=== PATIENT | female | born 1985 | race Caucasian/White ===

== ENCOUNTER 2019-12-10 15:00 | Inpatient (IN) | payer OTHER ==
[2019-12-10] VITALS (9 sets, daily range): BP systolic 109–130; BP diastolic 40–75
[~2019-12-10] VITALS: Ht 165.1 cm; Wt 68.0 kg
--- NOTE | 2019-12-10 15:00 | NUR ---
Ethel CAGE RA WITNESSED SEIZURE WHILE WALKING ON STREET, RT, MD AND RN AT BEDSIDE, TO ER BED 8, HOOKED TO REGISTERED NURSE RENAL, PATIENT WENT ON SEIZURES UPON ARRIVAL IN ED. PLACED PATIENT ON NON-REBREATHER MASK AT 15LPM, ATIVAN 2MG IM GIVEN. SEIZURE PRECAUTION APPLIED. Addendum: 12/10/19 at 1658 by SHWETA Ethel CAGE RA WITNESSED SEIZURE WHILE WALKING ON STREET, RT, AND RN AT BEDSIDE, TO ER BED 8, HOOKED TO REGISTERED NURSE RENAL, PATIENT WENT ON SEIZURES UPON ARRIVAL IN ED. PLACED PATIENT ON NON-REBREATHER MASK AT 15LPM, SEIZURE PRECAUTION APPLIED.
[2019-12-10] MEDS ORDERED: LORAZEPAM INJ 2 MG/ML VIAL ONE ×3 (15:10→15:26)
--- NOTE | 2019-12-10 15:10 | NUR ---
RECEIVED VERBAL ORDER FROM DR STACY FOR ATIVAN 2MG IM. CARRIED OUT
--- NOTE | 2019-12-10 15:14 | NUR ---
RECEIVED VERBAL ORDER FROM DR STACY FOR ATIVAN 2MG IV. CARRIED OUT. IVP RH 18G
[2019-12-10] MEDS ORDERED: PROPOFOL 100 ML ONE ×2 (15:28→18:11)
[2019-12-10 15:29] LABS: BASOPHILS # (AUTO) 0.1 /CMM (0.0-0.2); EOSINOPHILS % (AUTO) 0.2 % (0.0-6.0); HEMOGLOBIN 14.2 g/dL (11.5-14.8); MONOCYTES # (AUTO) 1.2 /CMM (0.1-1.30); WHITE BLOOD COUNT (AUTO) 20.1 K/uL (4.3-11.0)
[2019-12-10] MEDS ORDERED: NS 0.9% IV ONE (15:30)
[2019-12-10] MEDS ORDERED: KEPPRA 1000 MG in IV NS 100 ML IV ONE ×5 (15:30→16:30)
[2019-12-10] MEDS ORDERED: IV NS 0.9% 1,000 ML BAG IV ONE (15:30)
[2019-12-10] MEDS ORDERED: LEVETIRACETAM IV ONE (15:30)
--- NOTE | 2019-12-10 15:30 | NUR ---
DR STACY AT BEDSIDE IN PREPARATION FOR INTUBATION, RT AND RN AND TECH AT BEDSIDE
--- NOTE | 2019-12-10 15:32 | NUR ---
VERBAL ORDER RECEIVED FROM DR STACY OF ETOMIDATE 20MG IVP AND SUCCINYLCHOLINE 100MG IVP. CARRIED OUT.
--- NOTE | 2019-12-10 15:36 | NUR ---
ET TUBE IN. SIZE: 8.0 26 AT THE LIP +COLOR CHANGE + BILATERAL CHEST RISE AND FALL + BILATERAL LUNG SOUNDS
[2019-12-10 15:39] LABS: CALCIUM, SERUM 9.1 mg/dL (8.5-10.1); CARBON DIOXIDE 12 mmol/L (21-32); CHLORIDE 97 mmol/L (98-107); GLUCOSE 280 mg/dL (74-106); POTASSIUM 3.5 mmol/L (3.5-5.1); SODIUM SERUM 136 mmol/L (136-145); UREA NITROGEN, BLOOD 13 mg/dL (7-18)
--- NOTE | 2019-12-10 15:42 | NUR ---
RECEIVED VERBAL ORDER FROM DR STACY TO START PATIENT WITH PROPOFOL 1000MG/100ML. SET RATE STARTED AT 30MCG/KG/MIN RH 18G TITRATE TO EFFECT, END TIME: 2141
[2019-12-10 15:43] LABS: BASOPHILS % (AUTO) 0.5 % (0.0-2.0); HEMATOCRIT 45 % (33-45); LYMPHOCYTES # (AUTO) 6.9 /CMM (0.8-4.8); LYMPHOCYTES % (AUTO) 34.4 % (20.0-44.0); MEAN CORPUSCULAR HGB CONC 32 g/dl (31.0-36.0); MEAN CORPUSCULAR VOLUME 92 fL (82-100); NEUTROPHILS # (AUTO) 11.9 /CMM (1.8-8.9); NEUTROPHILS % (AUTO) 58.9 % (43.0-81.0); PLATELET COUNT (AUTO) 368 /CMM (150-450)
--- NOTE | 2019-12-10 15:44 | NUR ---
CARPENTER STREETCAR AT BEDSIDE FOR CONFIRMATION OF ET TUBE
[2019-12-10 15:45] LABS: ALANINE AMINOTRANSFERASE 32 U/L (12-78); ALBUMIN 4.8 g/dL (3.4-5.0); ALKALINE PHOSPHATASE 131 U/L (46-116); ASPARTATE AMINOTRANSFERASE 24 U/L (15-37); BILIRUBIN,DIRECT 0.1 mg/dL (0.0-0.2); BILIRUBIN,TOTAL 0.5 mg/dL (0.2-1.0); TOTAL PROTEIN, SERUM 9.1 g/dL (6.4-8.2)
--- NOTE | 2019-12-10 15:48 | NUR ---
ET TUBE ADJUSTMENT MADE BY RT. 23 AT THE LIP
--- NOTE | 2019-12-10 15:52 | NUR ---
Note emoryannamarie in EDM - 12/10/19 at 1657 by SHWEAT Aiyana CAGE RA/P WITNESSED SEIZURE WHILE WALKING ON STREET, RT, MD AND RN AT BEDSIDE, TO ER BED 8, HOOKED TO GLOBAL CEO, PATIENT WENT ON SEIZURES UPON ARRIVAL IN ED. PLACED PATIENT ON NON-REBREATHER MASK AT 15LPM, ATIVAN 2MG IM GIVEN. SEIZURE PRECAUTION APPLIED.
--- NOTE | 2019-12-10 15:57 | NUR ---
VENT SETTINGS: AC 20 VT 500 O2 50% PEEP 3.0
--- NOTE | 2019-12-10 15:58 | NUR ---
16FR RABAGO CATHETER INSERTED, NOTED WITH YELLOW AND CLEAR OUTPUT
--- NOTE | 2019-12-10 16:02 | NUR ---
250ML INITIAL URINE OUTPUT AFTER INSERTING RABAGO CATHETER
--- NOTE | 2019-12-10 16:20 | NUR ---
OROGASTRIC TUBE INSERTED. PLACEMENT CONFIRMED BY ASPIRATION OF GASTRIC CONTENTS. NOTED WITH CLEAR JESSIE COLORED GASTRIC CONTENT AT 300CC. ASLO +GURGLING SOUNDS UPON INJECTING 30CC OF AIR.
--- NOTE | 2019-12-10 16:24 | NUR ---
BED ASSIGNED BY NURSING COMMUNITY NURSE, ICU [id number].
--- NOTE | 2019-12-10 16:55 | NUR ---
REPORT GIVEN TO JAIME VICK OF ICU
[2019-12-10 17:01] LABS: LYMPHOCYTES % (MANUAL) 34 % (16-48); MONOCYTES % (MANUAL) 4 % (0-11.0); NEUTROPHILS % (MANUAL) 62 (42-76)
--- NOTE | 2019-12-10 17:11 | NUR ---
DR COWART AT BEDSIDE
[2019-12-10] MEDS ORDERED: LEVE500T9 PO (17:12)
[2019-12-10] MEDS ORDERED: FOLI0.4T2 PO (17:12)
--- NOTE | 2019-12-10 17:41 | NUR ---
FIGHT MANAGER AT BEDSIDE
[2019-12-10] MEDS ORDERED: Z GUARD REMEDY 2 OZ OINT TP PRN (18:00)
[2019-12-10] MEDS ORDERED: ONDANSETRON HCL/PF 4 MG/2 ML VIAL IVP PRN (18:00)
[2019-12-10] MEDS ORDERED: IV NS 0.9% 1,000 ML IV SCH (18:00)
[2019-12-10] MEDS ORDERED: LORAZEPAM INJ 2 MG/ML VIAL IM/IV ONE (18:00)
[2019-12-10] MEDS ORDERED: MAGNESIUM HYDROXIDE 30 ML UDC PO PRN (18:00)
[2019-12-10] MEDS ORDERED: LORAZEPAM INJ 2 MG/ML VIAL IV ONE (18:00)
[2019-12-10] MEDS ORDERED: MAG HYDROX/AL HYDROX/SIMETH 30 ML UDC PO PRN (18:00)
[2019-12-10 18:34] LABS: ABG BASE EXCESS -6.1 mmol/L; ABG OXYGEN SATURATION 98.9 % (92.0-98.5); ABG PCO2 25.2 mmHg (35.0-45.0); ABG PH 7.433 (7.350-7.450); ABG PO2 217.2 mmHg (75.0-100.0); COHb 0.3 % (0.5-1.5); MetHb 0.7 % (0.0-1.5); O2Hb 97.9 % (94.0-97.0); SITE, ABG Left Radial; VENT MODE, BG AC 20 500 50% +3
[2019-12-10] MEDS ORDERED: FEE EMEERGENCY 1 MIN EA MC ONE (18:53)
[2019-12-10] MEDS ORDERED: ETOMIDATE 2 MG/ML VIAL IV ONE (18:53)
[2019-12-10] MEDS ORDERED: SUCCINYLCHOLINE CHLORIDE 20 MG/ML VIAL IV ONE (18:53)
--- NOTE | 2019-12-10 19:00 | NUR ---
RECEIVED PATIENT ORALLY INTUBATED ON AC MODE TO THE VENTILATOR, SEDATED ON PROPOFOL DRIP ( PER AM RN,RECEIVED PATIENT ON 30 MCG/KG/MIN OF PROPOFOL ,BUT PATIENT BECAME AGITATED,INCREASED DRIP) RECEIVED PATIENT ON 80 MCG/KG/MIN). PATIENT JUST ARRIVED [facility]O, ER,WHO PRESENTED TO ER AFTER SEIZURE EPISODE WHILE WALKING WITH KIDS,FELL DUE TO THE SEIZURE SUSTAINING MULTIPLE BRUISE( BILATERAL KNEE,RIGHT WRIST) AND ABRASION OF RIGHT LATERAL SIDE OF THE FACE AND RIGHT EAR.FOUND BY PARAMEDICS HAVING SEIZURE ,WAS GIVEN VERSED IN THE FIELD. ON ARRIVAL TO ER ,HAD 2X EPISODE OF SEIZURE AND WAS GIVEN ATIVAN [address] HEAD DONE,WAS GIVEN KEPPRA IV.
[2019-12-10] MEDS ORDERED: PROPOFOL 100 ML IV PRN (20:00)
--- NOTE | 2019-12-10 20:11 | NUR ---
PATIENT RCVD ORALLY INTUBATED WITH 8.0 ETT SECURED @ 23 CM LIPLINE ON [facility] V[facility] WITH ORDERED SETTINGS MINGO WELL. SUCTIONED MODERATE AMOUNT OF PINK TINGED SECRETIONS. VENT ALARMS ON AND AUDIBLE. CUFF PRESSURE CHECKED EDGE BONDER. ETT SECURE AND IN PROPER POSITION. AMBU BAG AT [facility]. NO RESPIRATORY DISTRESS NOTED AT THIS TIME. WILL CONTINUE TO MONITOR THE PT T/O SHIFT.
[2019-12-10] MEDS: PROPOFOL 100 ML IV PRN ×2 (20:15→23:04)
[2019-12-10] MEDS: IV NS 0.9% 1,000 ML IV PRN (20:24)
--- NOTE | 2019-12-10 20:30 | NUR ---
PATIENT SEDATED, ATTEMPTED TO WEAN DOWN PROPOFOL DRIP .
[2019-12-10] MEDS ORDERED: LEVETIRACETAM (500MG) 1,000 MG in IV NS 0.9% 100 ML IV SCH (21:00)
--- NOTE | 2019-12-10 21:00 | NUR ---
PROPOFOL NOW @ 60 MCG/KG/MIN. , PATIENT OCCASIONALLY MOVES AND TRIES TO GET OFF RESTRAINTS .FAMILY AT BEDSIDE ,PATIENT GOT VERY AGITATED TRYING TO GET UP AND GET OFF RESTRAINTS, INCREASED PROPOFOL DRIP ,REMAINS VERY AGITATED, ATIVEN 2 MG . GIVEN( FOR AGITATION,NOT FOR SEIZURE). FAMILY TRIES TO CALM PATIENT DOWN BUT THE MORE PATIENT GOT AGITATED. Addendum: 12/11/19 at 0023 by JOSH COREA RN DUE TO SEVERE AGITATION HEART RATE INCREASED HIGH 150'S .
[2019-12-10] MEDS: LORAZEPAM INJ 2 MG/ML VIAL IV PRN (21:09)
[2019-12-10] MEDS: LEVETIRACETAM (500MG) 1,500 MG in IV NS 0.9% 100 ML IV SCH (21:38)
--- NOTE | 2019-12-10 22:00 | NUR ---
CALMED DOWN AFTER ATIVAN, PROPOFOL DRIP NOW BACK UP TO 90 MCG/KG/MIN..WILL CLOSSLY MONITOR BP.
[2019-12-11] VITALS (30 sets, daily range): BP systolic 95–129; BP diastolic 50–76
--- NOTE | 2019-12-11 | NUR ---
STABLE,NO SEIZURE EPISODE,OCCASIONALLY AWAKENS BUT CALM.
[2019-12-11] MEDS: ACETAMINOPHEN 325 MG TABLET PO PRN ×2 (00:45→23:55)
[2019-12-11] MEDS: PROPOFOL 100 ML IV PRN ×9 (01:33→21:59)
--- NOTE | 2019-12-11 04:00 | NUR ---
AM CARE DONE,REMAINS STABLE,REMAINS MODERATELY SEDATED.WILL WEAN OFF PROPOFOL TOLERATED
[2019-12-11 04:54] LABS: BASOPHILS % (AUTO) 0.1 % (0.0-2.0); HEMATOCRIT 35 % (33-45); HEMOGLOBIN 11.6 g/dL (11.5-14.8); LYMPHOCYTES # (AUTO) 1.4 /CMM (0.8-4.8); LYMPHOCYTES % (AUTO) 9.6 % (20.0-44.0); MEAN CORPUSCULAR HGB CONC 34 g/dl (31.0-36.0); MEAN CORPUSCULAR VOLUME 88 fL (82-100); MONOCYTES # (AUTO) 0.9 /CMM (0.1-1.30); MONOCYTES % (AUTO) 5.8 % (2.0-12.0); NEUTROPHILS # (AUTO) 12.5 /CMM (1.8-8.9); NEUTROPHILS % (AUTO) 84.5 % (43.0-81.0); PLATELET COUNT (AUTO) 215 /CMM (150-450); RED BLOOD CELL COUNT(AUTO) 3.94 MIL/uL (4.0-5.2); WHITE BLOOD COUNT (AUTO) 14.7 K/uL (4.3-11.0)
[2019-12-11 05:11] LABS: CALCIUM, SERUM 8.1 mg/dL (8.5-10.1); CREATININE 0.6 mg/dL (0.6-1.3); MAGNESIUM 2.2 mg/dL (1.8-2.4); PHOSPHORUS 3.4 mg/dL (2.5-4.9); POTASSIUM 3.5 mmol/L (3.5-5.1)
[2019-12-11] MEDS: IV NS 0.9% 1,000 ML IV PRN ×3 (05:28→22:00)
--- NOTE | 2019-12-11 06:41 | NUR ---
NO SEIZURE EPISODES ALL NIGHT. SEDATED BUT AWAKENS , NOW PROPOFOL AT 65 MCG/KG/MIN.
--- NOTE | 2019-12-11 07:00 | NUR ---
REPORT GIVEN TO JAIME VICK
[2019-12-11] MEDS: LEVETIRACETAM (500MG) 1,500 MG in IV NS 0.9% 100 ML IV SCH ×2 (08:15→20:01)
--- NOTE | 2019-12-11 11:22 | NUR ---
RN NOTE 0715: Received patient sedated. With ETT to vent, tolerated settings. No respiratory distress noted. With OGT intact, clamped. With Lerma cath intact, noted with glenn colored with sediments. With PIVs intact. VSS. Noted with slight fever, on cooling measures. No episodes of seizures noted. 1000: Rendered sedation vacation, noted with severe agitation, moves all extremities and not following commands. 1100: No any significant changes noted at this time. S/E by Dr. Smyth, no new order. Awaiting Neuro. No seizures noted.
[2019-12-11] MEDS ORDERED: LORAZEPAM INJ 2 MG/ML VIAL IV PRN (15:00)
--- NOTE | 2019-12-11 19:19 | NUR ---
RN NOTE 1530: S/E by Neuro, noted with agitation on low dose Dip, with order to may use Ativan for breakthrough and try to lower Dip dose as tolerated. 1700: at bedside, discussed re: the POC with Melonie RT for translation. Still noted with moving all extremities on low dose and does not follow commands. With order for CPAP trial in am. 1900: No any sig changes. On Dip 60.
[2019-12-11] MEDS: LORAZEPAM INJ 2 MG/ML VIAL IV PRN (20:01)
[2019-12-12] VITALS (24 sets, daily range): BP systolic 106–132; BP diastolic 34–82
[2019-12-12] MEDS: PROPOFOL 100 ML IV PRN ×3 (01:25→07:44)
[2019-12-12] MEDS: LORAZEPAM INJ 2 MG/ML VIAL IV PRN ×2 (04:43→09:32)
--- NOTE | 2019-12-12 06:30 | NUR ---
RN NOTES IN NO DISTRESS BREATHING EVEN AND UNLABORED.ANSWERS NO WHEN ASKED IF IN PAIN. VENT SETTING WELL TOLERATED. NO SIGNIFICANT CHANGE OF CONDITION. RECEIVED ON PROPOFOL DRIP AT 60MCG. TITRATED TO 50 MCG, WELL TOLERATED. ADMINISTERED 2MG ATIVAN X2 FOR MILD AGITATION, WITH HELP. NOTED WITH ELEVATED TEMPERATURE HIGHEST 101.2, TYLENOL GIVEN LAST TEMP 98.6. KEPT CLEAN AND DRY. WILL ENDORSE TO NEXT SHIFT FOR CONTINUITY OF CARE.
[2019-12-12 07:49] LABS: BASOPHILS % (AUTO) 0.2 % (0.0-2.0); EOSINOPHILS % (AUTO) 0.1 % (0.0-6.0); HEMATOCRIT 35 % (33-45); HEMOGLOBIN 11.4 g/dL (11.5-14.8); LYMPHOCYTES # (AUTO) 0.9 /CMM (0.8-4.8); LYMPHOCYTES % (AUTO) 5.8 % (20.0-44.0); MEAN CORPUSCULAR HGB CONC 33 g/dl (31.0-36.0); MEAN CORPUSCULAR VOLUME 88 fL (82-100); MONOCYTES # (AUTO) 0.9 /CMM (0.1-1.30); MONOCYTES % (AUTO) 5.6 % (2.0-12.0); NEUTROPHILS # (AUTO) 14.5 /CMM (1.8-8.9); NEUTROPHILS % (AUTO) 88.3 % (43.0-81.0); PLATELET COUNT (AUTO) 181 /CMM (150-450); RED BLOOD CELL COUNT(AUTO) 3.92 MIL/uL (4.0-5.2); WHITE BLOOD COUNT (AUTO) 16.4 K/uL (4.3-11.0)
[2019-12-12 07:58] LABS: CALCIUM, SERUM 7.8 mg/dL (8.5-10.1); CREATININE 0.4 mg/dL (0.6-1.3); MAGNESIUM 1.9 mg/dL (1.8-2.4); PHOSPHORUS 2.4 mg/dL (2.5-4.9); POTASSIUM 3.4 mmol/L (3.5-5.1)
--- NOTE | 2019-12-12 08:00 | NUR ---
RN NOTE: PATIENT RECEIVED WITH NO DISTRESS NOTED. INTUBATED, VENT SETTINGS TOLERATING WELL. CONTINUE WITH IV FLUIDS ORDERED. ASPIRATION PRECAUTIONS OBSERVED. SAFETY MEASURES OBSERVED. ON DIPRIVAN DRIP. PT EASILY AROUSAL, BLINKS EYES TO ANSWER YES TO SIMPLE QUESTIONS. CONTINUE TO TURN & REPOSITION Q2H. CONTINUE TO MONITOR.
[2019-12-12] MEDS: LEVETIRACETAM (500MG) 1,500 MG in IV NS 0.9% 100 ML IV SCH ×2 (08:18→21:07)
[2019-12-12] MEDS ORDERED: POTASSIUM CHLORIDE 20 MEQ TAB.PRT.SR PO ONE (08:30)
[2019-12-12] MEDS ORDERED: POTASSIUM CHLORIDE 10 MEQ/50 ML PREMIXED IVPB FOR PERIPHERAL LINE IV ONE (09:00)
[2019-12-12] MEDS: POTASSIUM CL. PREMIX PERIPHER. 50 ML IV SCH ×4 (09:24→12:42)
--- NOTE | 2019-12-12 10:00 | NUR ---
RN NOTE: CLARIFIED WITH DR. BUSTAMANTE REGARDING K-DUR PO ADMINISTRATION. PT IS NPO , OGT IS PLACED. RECEIVED NEW ORDERS TO CHANGE TO PO TO IV ROUTE ORDERED. WILL CONTINUE TO MONITOR.
[2019-12-12 10:37] LABS: ABG OXYGEN SATURATION 96.8 % (92.0-98.5); ABG PCO2 31.1 mmHg (35.0-45.0); ABG PH 7.344 (7.350-7.450); ABG PO2 96.9 mmHg (75.0-100.0); AaDO2 80.5 mmHg; COHb 0.3 % (0.5-1.5); MetHb 0.8 % (0.0-1.5); O2Hb 95.7 % (94.0-97.0); PEEP,BG 5 cm H2O; SITE, ABG Right Radial; VENT MODE, BG CPAP PS=15
[2019-12-12] MEDS ORDERED: Sodium Phosphate 15 MMOL in IV D5W 250 ML IV ONE (12:00)
[2019-12-12] MEDS: ACETAMINOPHEN 325 MG TABLET PO PRN (12:01)
[2019-12-12] MEDS: IV NS 0.9% 1,000 ML IV PRN (12:48)
--- NOTE | 2019-12-12 18:33 | NUR ---
RN NOTE: PATIENT REMAINS ALERT AWAKE ORIENTED X 1. ABLE TO UNDERSTAND. ABLE TO MAKE NEEDS KNOWN BY WRITING. ET TUBE IS RETRACTED RECOMMENDED BY DR. HOPE. CPAP MODE ON, SETTINGS TOLERATING WELL. NO S/S OF DISTRESS NOTED. PLAN TO EXTUBATE TOMORROW PER DR. HOPE. PT IS OFF SEDATION AT THIS TIME. SAFETY/SEIZURE PRECAUTIONS OBSERVED. HOB ELEVATED >30 DEGREES. NOTED SCANT VAGINAL BLEEDING, PER PATIENT HAVING A MENSES. KEPT PT CLEAN & DRY. CONTINUE WITH PLAN OF CARE.
[2019-12-13] VITALS (24 sets, daily range): BP systolic 107–137; BP diastolic 63–87
[2019-12-13] MEDS: IV NS 0.9% 1,000 ML IV PRN ×2 (00:42→13:28)
[2019-12-13 05:09] LABS: BASOPHILS # (AUTO) 0.1 /CMM (0.0-0.2); BASOPHILS % (AUTO) 0.3 % (0.0-2.0); EOSINOPHILS % (AUTO) 0.1 % (0.0-6.0); HEMATOCRIT 36 % (33-45); HEMOGLOBIN 11.6 g/dL (11.5-14.8); LYMPHOCYTES # (AUTO) 0.9 /CMM (0.8-4.8); MEAN CORPUSCULAR HGB CONC 32 g/dl (31.0-36.0); MEAN CORPUSCULAR VOLUME 89 fL (82-100); MONOCYTES # (AUTO) 0.9 /CMM (0.1-1.30); MONOCYTES % (AUTO) 5.2 % (2.0-12.0); NEUTROPHILS # (AUTO) 15.6 /CMM (1.8-8.9); NEUTROPHILS % (AUTO) 89.4 % (43.0-81.0); PLATELET COUNT (AUTO) 207 /CMM (150-450); RED BLOOD CELL COUNT(AUTO) 4.02 MIL/uL (4.0-5.2); WHITE BLOOD COUNT (AUTO) 17.4 K/uL (4.3-11.0)
[2019-12-13 05:32] LABS: CALCIUM, SERUM 8.3 mg/dL (8.5-10.1); CREATININE 0.5 mg/dL (0.6-1.3); MAGNESIUM 1.7 mg/dL (1.8-2.4); PHOSPHORUS 2.4 mg/dL (2.5-4.9); POTASSIUM 3.9 mmol/L (3.5-5.1)
--- NOTE | 2019-12-13 05:51 | NUR ---
RN NOTES VITAL SIGNS REMAIN STABLE EXCEPT FOR ON AND OFF SLIGHT ELEVATED TEMPERATURE THE HIGHEST 100.6. LAST TEMPERATURE TAKEN 99.7. COOLING MEASURES PROVIDED. IN NO APPARENT DISTRESS, BREATHING EVEN AND UNLABORED. NO COMPLAINT OF PAIN. ALERT BUT STILL SEDATED. ABLE TO COMMUNICATE NEEDS THROUGH MOUTHWORDS, FACIAL EXPRESSION AND HAND GESTURE. NO EPISODE OF SEIZURE. KEPT CLEAN AND DRY. WILL ENDORSE TO AM SHIFT FOR CONTINUITY OF CARE.
[2019-12-13] MEDS: ACETAMINOPHEN 325 MG TABLET PO PRN (08:03)
[2019-12-13] MEDS: LEVETIRACETAM (500MG) 1,500 MG in IV NS 0.9% 100 ML IV SCH ×2 (08:53→20:33)
[2019-12-13] MEDS: Magnesium 1GM/D5W 100ML PREMIX 100 ML IV SCH ×2 (10:24→11:35)
[2019-12-13] MEDS ORDERED: DC PROPOFOL WHEN EXTUBATED XX PRN (11:00)
--- NOTE | 2019-12-13 13:17 | NUR ---
RT NOTE: PATIENT EXTUBATED PER . PATIENT PLACED ON OXYGEN 1 LPM VIA NASAL CANNULA. PATIENT STATES THAT BREATHING IS UNLABORED BUT IS COUGHING UP LARGE AMOUNT OF SPUTUM. HOLLY WITHIN REACH AND PATIENT WAS INSTRUCTED ON USING IT. NURSE (BOSSMAN) AWARE.
[2019-12-13] MEDS ORDERED: Sodium Phosphate 15 MMOL in IV D5W 250 ML IV ONE (15:30)
[2019-12-13] MEDS ORDERED: ACETAMINOPHEN 650 MG/SUPP.RECT RC PRN (17:30)
[2019-12-13] MEDS: HYDROCODONE/APAP 5/325MG 1 EACH TABLET PO PRN (23:34)
[2019-12-14] VITALS (15 sets, daily range): BP systolic 108–133; BP diastolic 58–76
--- NOTE | 2019-12-14 02:00 | NUR ---
COSMETIC DENTIST PT IS AWAKE, ALERT,ORIENTED X 3, VERY PLEASANT & COOPERATIVE. MOVES ALL EXTREMITIES, SANDI. SHE WAS EXTUBATED YESTERDAY AROUND 13.30. NOW SHE IS ON O2 2L VIA N/C TOLERATES WELL. SCOPE-ST. NO ANY SEIZURES NOTED. PT STILL HAS A SORE THROAT D/T TRAUMATIC INTUBATION. SHE CAN NOT DRINK WATER, BECAUSE STARTS COUCHING. PO MEDICATION GIVEN BY CRUSHING PILL & MIXING IT WITH APPLE SOURCE. PT NEEDS SWALLOW EVALUATION TO BE DONE. F/C DRAINS SUFFICIENT AMT. OF CLEAR URINE. PT IS STABLE ENOUGH TO BE DOWNGRADED. REPORT GIVEN TO EBONY FOR REYNA.
[2019-12-14] MEDS: IV NS 0.9% 1,000 ML IV PRN ×2 (02:12→22:23)
--- NOTE | 2019-12-14 02:30 | NUR ---
CUSTOMER CARE TEAM COACH NOTE RECEIVED PT A/O X4 AND ABLE TO VERBALIZE NEEDS IN [place]JIK. ON 2L OF O2 VIA NC AND SATURATING WELL. BREATHING REGULAR AND UNLABORED. ON ASPIRATION AND SEIZURE PRECAUTIONS. NOTED WITH PRODUCTIVE COUGH AND ABLE TO SUCTION SELF ORALLY. PT C/O OF THROAT DISCOMFORT. STARTED NEW IV TO RFA #20 AND CONTINUING IV FLUIDS. RABAGO CATHETER IN PLACE AND DRAINING BY GRAVITY. CALL LIGHT WITHIN REACH. ALL SAFETY MEASURES IN PLACE. WILL MONITOR.
[2019-12-14 05:18] LABS: BASOPHILS % (AUTO) 0.3 % (0.0-2.0); HEMATOCRIT 36 % (33-45); HEMOGLOBIN 11.9 g/dL (11.5-14.8); LYMPHOCYTES # (AUTO) 1.1 /CMM (0.8-4.8); LYMPHOCYTES % (AUTO) 7.9 % (20.0-44.0); MEAN CORPUSCULAR HGB CONC 33 g/dl (31.0-36.0); MEAN CORPUSCULAR VOLUME 89 fL (82-100); MONOCYTES # (AUTO) 1.1 /CMM (0.1-1.30); MONOCYTES % (AUTO) 8.1 % (2.0-12.0); NEUTROPHILS # (AUTO) 11.2 /CMM (1.8-8.9); NEUTROPHILS % (AUTO) 82.7 % (43.0-81.0); PLATELET COUNT (AUTO) 251 /CMM (150-450); RED BLOOD CELL COUNT(AUTO) 4.06 MIL/uL (4.0-5.2); WHITE BLOOD COUNT (AUTO) 13.5 K/uL (4.3-11.0)
[2019-12-14 05:45] LABS: CALCIUM, SERUM 8.5 mg/dL (8.5-10.1); CREATININE 0.5 mg/dL (0.6-1.3); MAGNESIUM 2.1 mg/dL (1.8-2.4); PHOSPHORUS 1.6 mg/dL (2.5-4.9); POTASSIUM 3.8 mmol/L (3.5-5.1)
--- NOTE | 2019-12-14 07:30 | NUR ---
RN NOTE RECEIVED PT ON BED, AOX3, ON NC 2 L/MIN, CO SORE THROAT, PENDING SWALLOW EVAL, PRODUCTIVE COUGH PRESENT, VOICE IS LOW AND HOARSE, CO HEADACHE 4/10, R FAA 20 G IV INTACT, AND LEFT FA 20 G INTACT, NS AT100 ML/HR INFUSING. ABLE TO MOVE EXTREMITIES. RABAGO IN PLACE DRAINING YELLOW URINE. CALL LIGHT WITHIN REACH, SAFETY AND SEIZURE PRECAUTION IN PLACE. WILL MONITOR.
[2019-12-14] MEDS: LEVETIRACETAM (500MG) 1,500 MG in IV NS 0.9% 100 ML IV SCH ×2 (09:02→20:09)
[2019-12-14] MEDS: ACETAMINOPHEN 325 MG TABLET PO PRN (09:13)
--- NOTE | 2019-12-14 11:07 | NUR ---
RN NOTE REPORT GIVEN TO NICANOR PATEL IN MED/SURGE FLOOR FOR ROOM 102 FOR REYNA. PT STABLE.
--- NOTE | 2019-12-14 12:05 | NUR ---
RN NOTE PT TRANSFERRED TO MED/SURG WITH GIS ANALYST, PT STABLE.
--- NOTE | 2019-12-14 13:00 | NUR ---
RN NOTE: RECEIVED PATIENT TRANSFER FROM ICU TO MS STATUS. PATIENT IN STABLE CONDITION. ON CONT 02 VIA NC @ 2LPM AND TOLERATING WELL, SATURATION >92%. NO SOB AND NOT IN RESPIRATORY DISTRESS. IV SITES PATENT, CLEAN, DRY AND SECURE. NO PAIN REPORTED AT THIS TIME. RABAGO CATHETER DISCONTINUED PER MD ORDER. CALL LIGHT IN REACH. BED LOCKED, LOW AND AT SEMI-TATE'S POSITION. NEEDS ANTICIPATED. SIDE RAILS UP X3. WILL CONTINUE TO MONITOR.
[2019-12-14] MEDS: POTASSIUM PHOSPHATE MM 7.5 MMOL in IV D5W 100 ML IV SCH ×2 (13:28→16:30)
--- NOTE | 2019-12-14 19:44 | NUR ---
RN OPENING NOTES RECEIVED PATIENT IN BED AWAKE, ALERT AND ORIENTED X4, VERBALL RESPONSIVE. FAROESE SPEAKER. BREATHING EVEN AND UNLABORED. NO SOB NOTED. ON 2LPM NC. CURRENTLY DENIES PAIN OR DISCOMFORT. DENIES N/V. IV INTACT AND PATENT WITH IVF INFUSING. RABAGO CATH D/Cd BY DAY NURSE. ALL OTHER NEEDS ATTENDED TO. SAFETY MEASURES IN PLACE. ASPIRATION AND SEIZURE PRECAUTIONS IN PLACE. CALL LIGHT WITHIN REACH. WILL CONTINUE TO MONITOR.
--- NOTE | 2019-12-14 19:49 | NUR ---
RN CLOSING NOTE: PATIENT IN STABLE CONDITION. IN BED. ALERT. ORIENTED X4. ANGUILLAN-SPEAKING ONLY. ON ROOM AIR AND TOLERATING WELL, SATURATION >92%. NO SOB AND NOT IN RESPIRATORY DISTRESS. IV SITES PATENT, CLEAN, DRY AND SECURE. NO PAIN REPORTED AT THIS TIME. CALL LIGHT IN REACH. BED LOCKED, LOW AND AT SEMI-TATE'S POSITION. NEEDS ANTICIPATED. SIDE RAILS UP X3. ENDORSED TO ONCOMING SHIFT FOR REYNA.
[2019-12-15] MEDS: ACETAMINOPHEN 325 MG TABLET PO PRN (00:09)
[2019-12-15 04:00] VITALS: BP 117/72
--- NOTE | 2019-12-15 06:27 | NUR ---
RN CLOSING NOTES PATIENT RESTING IN BED. NO ACUTE CHANGES THROUGHOUT SHIFT. NO SEIZURE ACTIVITY. CURRENTLY DENIES PAIN OR DISCOMFORT. DENIES N/V. IV INTACT AND PATENT WITH IVF INFUSING. ALL OTHER NEEDS ATTENDED TO. SAFETY MEASURES IN PLACE. ASPIRATION AND SEIZURE PRECAUTIONS IN PLACE. CALL LIGHT WITHIN REACH. WILL ENDORSE TO ONCOMING NURSE FOR REYNA.
--- NOTE | 2019-12-15 07:00 | NUR ---
RN MS NOTES PATIENT IS ON 2L OXYGEN. PATIENT IS SATURATING WELL . PATIENT SHOWS NO SIGNS OF SOB, ACUTE RESPIRATORY DISTRESS. NO PAIN. PATIENT IS A/OX 4 PATIENT IS ASLEEP BUT EASILY WOKEN WITH NAME AND TOUCH . PATIENT HAS MULTIPLE ABRASION ON THE FACE . PATIENT HAS LFA 20 AND RFA #20 BOTH LINES INTACT AND DRY. NO SIGNS OF INFILTRATION. PATIENT HAS NS @ 100 ML/HR. BED LOCKED AND LOWEST POSITION CALL LIGHT WITH IN REACH ALL SAFETY MEASURE IMPLEMENTED PER HOSPITAL POLICY
[2019-12-15 08:00] VITALS: BP 136/79
[2019-12-15] MEDS: LEVETIRACETAM SOL (5 ML) 100 MG/ML UDC PO SCH ×2 (08:45→20:56)
[2019-12-15] MEDS: IV NS 0.9% 1,000 ML IV PRN (10:55)
--- NOTE | 2019-12-15 11:25 | NUR ---
RN NOTES RECEIVE NOTES FROM PATEL VICK FOR CONTINUATION OF CARE
[2019-12-15 12:00] VITALS: BP 136/79
[2019-12-15 16:00] VITALS: BP 108/71
--- NOTE | 2019-12-15 16:25 | NUR ---
RN CLOSING NOTES PATIENT RESTING IN BED. NO ACUTE CHANGES THROUGHOUT SHIFT. NO SIGN ANSD SYMPTOMS OF RESPIRATORY DISTRESS CURRENTLY DENIES PAIN OR DISCOMFORT. DENIES N/V. IV INTACT AND PATENT WITH IVF INFUSING WELL. ALL OTHER NEEDS ATTENDED TO. SAFETY MEASURES IN PLACE. ASPIRATION AND SEIZURE PRECAUTIONS IN PLACE. CALL LIGHT WITHIN REACH.NEGATIVE SIGNIFICANT CHANGES ON CONDITION NOTED WILL ENDORSE TO ONCOMING NURSE FOR REYNA.
[2019-12-15 16:38] VITALS: BP 108/71
--- NOTE | 2019-12-15 18:22 | NUR ---
MS RN CLOSING NOTES PATIENT RESTING ON BED, AO X 3, SERBIAN SPEAKING, ON ROOM AIR, NO SOB, RESPIRATION UNLABORED, DENIES PAIN, NO SEIZURES NOTED DURING THE WHOLE SHIFT, LFA 20 AND RFA #20 BOTH LINES INTACT AND DRY. NO SIGNS OF INFILTRATION. NS @ 100 ML/HR ONGOING, BED LOCKED AND LOWEST POSITION CALL LIGHT WITH IN REACH, SAFETY MEASURES IN PLACE, ALL NEEDS MET, NO OTHER SIGNIFICANT CHANGE IN CONDITION. WILL ENDORSE TO NEXT SHIFT.
--- NOTE | 2019-12-15 19:25 | NUR ---
MS RN OPENING NOTES RECEIVED PATIENT FROM MORNING SHIFT, ALERT AND ORIENTED X 3. VERBALLY RESPONSIVE POLISH SPEAKING AND ABLE TO FOLLOW DIRECTIONS. BREATHING REGULAR AND UNLABORED ON OXYGEN AT 2L/MIN VIA NASAL CANNULA. LEFT AND RIGHT FOREARM G20 IV LINES INTACT AND PATENT INFUSING WELL WITH NO BLEEDING OR S/S OF INFECTION SEEN. BODY ASSESSMENT DONE, OBSERVED WITH MULTIPLE SKIN ABRASIONS. NO COMPLAINTS OF PAIN/DISCOMFORT REPORTED OF THE TIME. BED LOW AND LOCKED ON SEMI FOWLERS POSITION. CALL LIGHT IN REACH. WILL CONTINUE TO MONITOR.
[2019-12-15 20:00] VITALS: BP 121/69
[2019-12-16] MEDS: HYDROCODONE/APAP 5/325MG 1 EACH TABLET PO PRN (04:53)
[2019-12-16 05:00] VITALS: BP 109/66
--- NOTE | 2019-12-16 05:00 | NUR ---
MS RN NOTES COMPLAINED OF 7/10 GENERALIZED PAIN, NORCO 5/325 GIVEN BY MOUTH. NON-PHARMACOLOGICAL INTERVENTIONS PROVIDED. VITAL SIGNS WNL. WILL CONTINUE TO MONITOR.
--- NOTE | 2019-12-16 06:20 | NUR ---
MS RN CLOSING NOTES PATIENT IN BED ALERT AND ORIENTED X 3. VERBALLY RESPONSIVE KYRGYZ SPEAKING AND ABLE TO FOLLOW DIRECTIONS. BREATHING REGULAR AND UNLABORED ON OXYGEN AT 2L/MIN VIA NASAL CANNULA. LEFT AND RIGHT FOREARM G20 IV LINES INTACT AND FLUSHING WELL. NO COMPLAINTS OF PAIN/DISCOMFORT REPORTED OF THE TIME. NO EPISODE OF SEIZURE NOTED WITHIN THE SHIFT. BED LOW AND LOCKED ON SEMI FOWLERS POSITION. CALL LIGHT IN REACH. WILL ENDORSE TO MORNING SHIFT FOR REYNA.
[2019-12-16 08:00] VITALS: BP 106/63
[2019-12-16] MEDS: LEVETIRACETAM SOL (5 ML) 100 MG/ML UDC PO SCH (08:39)
== END 2019-12-16 15:35 | disposition home or self-care (01) | DRG 53 ==
LOC: ER 15:09 → ICU 17:38 → MEDSG1 12-14 11:24
PROVIDERS: ADMIT Internal Medicine; ATTEND Internal Medicine
PROC: 5A1945Z Respiratory Ventilation, 24-96 Consecutive Hours (ICD-10-PCS; principal; 2019-12-10)
PROC: 0BH17EZ Insertion of Endotracheal Airway into Trachea, Via Natural or Artificial Opening (ICD-10-PCS; principal; 2019-12-10)
DX: G40.901 Epilepsy, unspecified, not intractable, with status epilepticus (principal); J96.00 Acute respiratory failure, unspecified whether with hypoxia or hypercapnia; N17.0 Acute kidney failure with tubular necrosis; J32.2 Chronic ethmoidal sinusitis; J98.11 Atelectasis; E87.2 Acidosis; D72.829 Elevated white blood cell count, unspecified; Z91.14 Patient's other noncompliance with medication regimen; J98.2 Interstitial emphysema
CPT/HCPCS: 31720; 36415; 36600; 70450-TC; 71045-TC; 80048-TC; 80061-TC; 80076-TC; 80305; 82803-TC; 83605-TC; 83735-TC; 84100-TC; 84703-TC; 85025-TC; 87040-TC; 87081-TC; 92526; 92611-TC; 94002-TC; 94003-TC; 95819-TC; 97116-TC; 97530-TC; 99082-TC; A4216; A9563; G0378; J0330; J1953; J2060; J3475; J3480; J3490; J7030; J7060

== ENCOUNTER 2022-12-22 17:17 | Emergency (ER) | payer OTHER ==
[~2022-12-22] VITALS: Ht 165.1 cm; Wt 67.1 kg
[~2022-12-22 17:17] MED LIST: FOLI0.4T6 PO; LEVE500T9 PO
[2022-12-22 17:28] VITALS: BP 122/67
[2022-12-22] MEDS ORDERED: AMOX-430 PO ×2 (17:38→17:58)
[2022-12-22] MEDS ORDERED: IBUP-1953 PO ×2 (17:38→17:58)
== END 2022-12-22 18:04 | disposition home or self-care (01) ==
LOC: ER 17:39
DX: J32.1 Chronic frontal sinusitis (principal); Z79.899 Other long term (current) drug therapy

== ENCOUNTER 2023-01-05 09:03 | Emergency (ER) | payer OTHER ==
[~2023-01-05] VITALS: Ht 165.1 cm; Wt 68.0 kg
[~2023-01-05 09:03] MED LIST changes: +AMOX-430 PO; +IBUP-1953 PO
[2023-01-05 09:11] VITALS: BP 138/81
--- NOTE | 2023-01-05 09:15 | NUR ---
"have an abcess on my butt x1mo worse now"
--- NOTE | 2023-01-05 09:22 | NUR ---
at bedside for eval
[2023-01-05] MEDS ORDERED: HYDROCODONE/APAP 5/325MG TABLET PO ONE (09:30)
[2023-01-05] MEDS ORDERED: SULFAMETH/TRIMETH 800/160 MG 1 UDTAB TABLET PO ONE (09:30)
[2023-01-05] MEDS ORDERED: LIDOCAINE 2%-EPI 1:100,000 30 ML VIAL ONE (09:33)
[2023-01-05] MEDS ORDERED: SULFAMETH/TRIMETH 800/160 MG 1 UDTAB TABLET ONE (09:37)
[2023-01-05] MEDS ORDERED: HYDROCODONE/APAP 5/325MG TABLET ONE (09:37)
[2023-01-05] MEDS ORDERED: SULF1TAB48 PO (09:48)
[2023-01-05] MEDS ORDERED: IBUP-1957 PO (09:48)
--- NOTE | 2023-01-05 09:58 | NUR ---
Procedure performed by and chaperoned by NICANOR Wilson. Patient discharged to home in stable condition. Written and verbal after care instructions given. Patient verbalizes understanding of instruction. Prescriptions given to patient.
--- NOTE | 2023-01-05 10:01 | NUR ---
Patient discharged to home in stable condition. Written and verbal after care instructions given through staff interpreter. Patient verbalizes understanding of instruction.
== END 2023-01-05 10:00 | disposition home or self-care (01) ==
LOC: ER 09:13
DX: L05.01 Pilonidal cyst with abscess (principal); G40.909 Epilepsy, unspecified, not intractable, without status epilepticus; Z79.899 Other long term (current) drug therapy
CPT/HCPCS: 10080; 99283; A6403 ×2; J3490

== ENCOUNTER 2023-01-09 08:04 | Emergency (ER) | payer OTHER ==
[~2023-01-09] VITALS: Ht 165.1 cm; Wt 69.4 kg
[~2023-01-09 08:04] MED LIST changes: +IBUP-1957 PO; +SULF1TAB48 PO
[2023-01-09 08:26] VITALS: BP 122/73
--- NOTE | 2023-01-09 09:10 | NUR ---
SEEN AND EVALUATED BY DR DELEON. PROVIDED W/ WOUND CARE. D/C IN STABLE CONDITION.
== END 2023-01-09 09:10 | disposition home or self-care (01) ==
LOC: ER 08:08
DX: Z48.00 Encounter for change or removal of nonsurgical wound dressing (principal); L05.01 Pilonidal cyst with abscess; Z79.899 Other long term (current) drug therapy